=== PATIENT | male | born 1995 | race Caucasian/White ===

== ENCOUNTER 2018-02-27 16:45 | Emergency (ER) | payer OTHER ==
[~2018-02-27] VITALS: Ht 188 cm; Wt 75.6 kg
[2018-02-27 16:48] VITALS: TEMP 36.7; Ht 188 cm; Wt 75.6 kg
--- NOTE | 2018-02-27 17:27 | EMERGENCY ROOM VISIT NOTE ---
ED Visit Note First contact with patient: 16:55 CHIEF COMPLAINT: Head injury HISTORY OF PRESENT ILLNESS: This 22-year-old male patient presented to the emergency department, ambulatory, approximately 1 hour after receiving a head injury while playing a game. The patient states he was trying to tag another player, when he got low and dove, landing on his right arm, followed by striking his head on the ground. The patient states he was evaluated by an ENT , and was told he does have concussion symptoms. The patient states he did have some initial memory loss regarding details about the game and how he got there, however he states that has since improved. He states the EMT told him his pupils were dilating abnormally. There was no loss of consciousness. There has been no vomiting. The patient complains of feeling mildly disoriented and having stinging pain in the abrasions on his arm and abdomen. The patient denies nausea, vomiting, abdominal pain, chest pain, dyspnea, neck pain, headache, weakness, numbness or tingling. He denies any concussion history. The patient does not take blood thinners. He is a [employer] student, and is returning to college on Thursday. The patient has taken nothing for the pain. The patient rates the pain as 3/10 and very mild. The patient denies bowel or bladder dysfunction. The patient denies any other injuries. REVIEW OF SYSTEMS: A 10 system review of systems was performed with positives and pertinent negatives listed in the history of present illness. All other systems were reviewed and are negative. ALLERGIES: None MEDICATIONS: None PMH: None SOCIAL HISTORY: The patient lives with his roommates at [facility]. He denies drug, alcohol or tobacco use PHYSICAL EXAM: Vital Signs: Reviewed Nurse's notes, vital signs stable. GENERAL : This is a 22-year-old male, in no acute distress, well-developed, well- nourished. NEURO: The patient is alert, oriented to person place and time, and coherent. Normal mini mental status exam. Negative Romberg and pronator drift. Cerebellar function intact. HEAD: Normocephalic, atraumatic. EYES: Pupils are equal round and reactive to light and accommodation. EOMs are full and optic discs and fundi are normal. There is no swelling or discoloration of the tissue surrounding the eyes. EARS: External auditory canals clear without blood. NOSE: Patent without tenderness. No septal hematoma. FACE: No facial bone tenderness. NECK: Supple. There is no cervical spine tenderness. The patient does not have tenderness with movement of the neck. SKIN: There is superficial abrasions noted on the thorax, abdomen, and extremities. There are superficial abrasions noted of the face. These are not actively bleeding. They have been cleaned and many have been bandaged prior to arrival. ED COURSE: I examined the patient. He presents after experiencing head injury approximately 1 hour prior. The patient did have symptoms of concussion , however these have improved upon arrival to the emergency department. He continues to complain of some mild disorientation, but denies any significant neurological symptoms including loss of consciousness, nausea, vomiting, headache, weakness, numbness or tingling, or concussion history. Based on this history and the mechanism of injury, I do not feel that performing CT scanning at this time is necessary. I discussed options for scanning versus none, and the patient was agreeable to avoiding the radiation exposure at this time. The patient was given home care instructions, and encouraged to follow-up next week with his [facility] or PCP. All questions were answered to patient's satisfaction. The patient was discharged home in good condition ambulatory. I attest that I have personally reviewed the patient's current medication list. Patient was found to have normal blood pressure on screening and does not require follow-up. Etiologies such as closed head injury, concussion, migraine, tumor, headache, ICH, SAH, infection, as well as others were entertained. DIAGNOSIS: Closed head injury The chart was completed utilizing [employer] Speech voice recognition software. Grammatical errors, random word insertions, pronoun errors, and incomplete sentences are an occasional consequence of this system due to software limitations, ambient noise, and hardware issues. Any formal questions or concerns about the content, text, or information contained within the body of this dictation should be directly addressed to the provider for clarification. Current/Historical Medications Scheduled PRN Acetaminophen (Tylenol), 1,000 MG PO Q6 PRN for Pain Naproxen (Naprosyn), 1 TAB PO BID PRN for Pain Allergies Coded Allergies: No Known Allergies (Unverified , 02/27/18) Vital Signs Date Time Temp Pulse Resp B/P (MAP) Pulse Ox O2 Delivery O2 Flow Rate FiO2 02/27/18 17:42 84 20 141/83 97 4/14/18 16:48 36.7 107 17 133/72 98 Room Air Departure Information Impression Primary Impression: Closed head injury Additional Impression: Concussion Dispostion Home / Self-Care Condition GOOD Referrals No Doctor, Assigned (PCP) Patient Instructions ED Concussion, Maryam Degroot Additional Instructions You have been treated in the Emergency Department for a Closed Head Injury. For pain control, you can use the following lvun-fuz-linisoc medicines (if >12 yo): Ibuprofen(Motrin, Advil) may be used for fever or pain. Use 600mg every six hours as needed. Take with food. Avoid using more than 2400mg in a 24 hour period. Do not use 2400mg per day for more than three consecutive days without physician direction. Prolonged inappropriate use can lead to stomach upset or ulcers. (AND/OR) Acetaminophen(Tylenol) may be used for fever or pain. Use 1000mg every six hours as needed. Avoid using more than 3000mg in a 24 hour period. You should relax in a quiet, dark place for the rest of the day. Avoid any possible triggers including: cigarette smoke, caffeine, nicotine, chocolate, wine, beer, loud noises or music, or bright lights. You should schedule a follow-up appointment in 2-3 days with your Primary Care Provider or established Neurologist for further evaluation and treatment of your Headache. You should NOT return to athletic play until reevaluated by your Acid Remover. You should fully comply with their standard protocol regarding head injuries. Your Acid Remover OR Primary Care Provider will have the final say in your return to athletic play. This timeframe should be AT LEAST 1 week AFTER the date of last symptoms experienced! This is ESSENTIAL to allow for adequate brain healing time and for reduced risk of re-injury. Return to the Emergency Department if your current symptoms worsen despite treatment course outlined above, or if you develop any of the following symptoms : intractable pain despite aforementioned treatment course, visual disturbances , loss of vision, unilateral weakness or facial drooping, slurring of speech, loss of coordination, or loss of consciousness. Problem Qualifiers Primary Impression: Closed head injury Encounter type: initial encounter Qualified Codes: S09.90XA - Unspecified injury of head, initial encounter Additional Impression: Concussion Encounter type: initial encounter Loss of consciousness presence/duration: without LOC Qualified Codes: S06.0X0A - Concussion without loss of consciousness, initial encounter
[2018-02-27] MEDS ORDERED: ACET-1256 PO (17:36)
[2018-02-27] MEDS ORDERED: NAPR-1169 PO (17:36)
[2018-02-27 17:42] VITALS: BP 141/83; PULSE 84; O2SAT 97
== END 2018-02-27 17:43 | disposition home or self-care (01) ==
LOC: C.EDB 16:49 → C.EDD 17:43
DX: S06.0X0A Concussion without loss of consciousness, initial encounter (principal); S20.91XA Abrasion of unspecified parts of thorax, initial encounter; S30.811A Abrasion of abdominal wall, initial encounter; S00.81XA Abrasion of other part of head, initial encounter; S80.819A Abrasion, unspecified lower leg, initial encounter; S40.819A Abrasion of unspecified upper arm, initial encounter; W22.8XXA Striking against or struck by other objects, initial encounter; Y93.79 Activity, other specified sports and athletics